=== PATIENT | male | born 1970 | race African-American/Black ===

== ENCOUNTER 2024-02-14 09:12 | Emergency (ER) | payer OTHER ==
[~2024-02-14] VITALS: Ht 167.6 cm; Wt 74.8 kg
[2024-02-14 09:42] VITALS: BP 177/113; PULSE 71; RESP 18; TEMP 98; O2SAT 99
== END 2024-02-14 10:51 | disposition home or self-care (01) ==
LOC: ER 09:12
DX: K40.90 Unilateral inguinal hernia, without obstruction or gangrene, not specified as recurrent (principal); F12.10 Cannabis abuse, uncomplicated
CPT/HCPCS: 74176

== ENCOUNTER → 2024-04-30 | Outpatient (CLI) | payer OTHER ==
[2024-04-30 14:21] LABS: Alanine Aminotransferase 36 U/L (7-40); Albumin 4.1 g/dL (3.2-4.8); Alkaline Phosphatase 95 U/L (46-116); Anion Gap 8 (5-15); Aspartate Aminotransferase 18 U/L (13-40); BUN/Creatinine Ratio 16.8 (10.0-20.0); Bilirubin, Total 0.8 mg/dL (0.2-1.0); Blood Urea Nitrogen 19 mg/dL (9-23); Calcium 9.8 mg/dL (8.7-10.4); Carbon Dioxide 26 mmol/L (20-31); Chloride 107 mmol/L (98-107); Glucose 142 mg/dL (74-106); Sodium 141 mmol/L (136-145); Total Protein 6.5 g/dL (5.7-8.2)
== END | disposition home or self-care (01) ==
LOC: LAB 13:09
DX: Z12.5 Encounter for screening for malignant neoplasm of prostate (principal); E87.6 Hypokalemia
CPT/HCPCS: 36415; 80053; 84153

== ENCOUNTER → 2024-06-09 | Outpatient (CLI) | payer OTHER ==
[2024-06-09 12:21] LABS: Urine Bacteria FEW /hpf (None Seen); Urine Blood Negative /uL (Negative); Urine Clarity Clear (Clear); Urine Color Yellow (Yellow); Urine Mucus FEW (None Seen); Urine Protein, UAD TRACE (Negative); Urine Specific Gravity 1.029 (1.001-1.035); Urine Sperm PRESENT /hpf (None Seen); Urine Urobilinogen 3 mg/dL (Negative); Urine WBC 1 /hpf (0 - 3)
[2024-06-09 12:40] LABS: Alanine Aminotransferase 35 U/L (7-40); Alkaline Phosphatase 107 U/L (46-116); Anion Gap 3 (5-15); Aspartate Aminotransferase 23 U/L (13-40); BUN/Creatinine Ratio 17.5 (10.0-20.0); Blood Urea Nitrogen 17 mg/dL (9-23); Calcium 9.9 mg/dL (8.7-10.4); Carbon Dioxide 28 mmol/L (20-31); Chloride 107 mmol/L (98-107); Glucose 98 mg/dL (74-106); Potassium 3.9 mmol/L (3.5-5.1); Sodium 138 mmol/L (136-145)
[2024-06-09 12:41] LABS: Albumin 4.4 g/dL (3.2-4.8); Bilirubin, Total 1.1 mg/dL (0.2-1.0); Total Protein 7.1 g/dL (5.7-8.2)
== END | disposition home or self-care (01) ==
LOC: LAB 11:28
DX: I10 Essential (primary) hypertension (principal); E87.6 Hypokalemia
CPT/HCPCS: 36415; 80053; 81001

== ENCOUNTER 2024-08-19 10:27 | Day surgery (SDC) | payer OTHER ==
[2024-08-17 11:07] LABS: Urine Bacteria None Seen /hpf (None Seen)
[2024-08-17 11:19] LABS: Basophils # (auto) 0.2 10 ^3/uL (0-0.2); Basophils % (auto) 4.8 % (0.0-2.0); Eosinophils # (auto) 0.5 10 ^3/uL (0-0.8); Eosinophils % (auto) 11.1 % (0.0-7.0); Hematocrit 43.7 % (41.0-53.0); Hemoglobin 14.6 g/dL (13.5-17.5); Lymphocytes # (auto) 1.5 10 ^3/uL (0.4-5.4); Mean Corpuscular Hemoglobin 31.1 pg (28.0-32.0); Mean Corpuscular Hgb Conc. 33.5 g/dL (32.0-36.0); Mean Corpuscular Volume 92.9 fL (80.0-100.0); Monocytes # (auto) 0.5 10 ^3/uL (0-1.3); Monocytes % (auto) 10.3 % (0.0-12.0); Neutrophils # (auto) 1.9 10 ^3/uL (1.6-8.6); Neutrophils % (auto) 41.8 % (37.0-80.0); Nucleated Red Blood Cells % 0.1 %; Platelet Count (auto) 229 10^3/uL (140-450); Red Blood Cells 4.71 10^6/uL (4.5-5.90); White Blood Cell 4.6 10^3/uL (4.4-10.8)
[2024-08-17 11:32] LABS: Urine Blood Negative /uL (Negative); Urine Clarity Clear (Clear); Urine Color Colorless (Yellow); Urine Protein, UAD Negative (Negative); Urine Squamous Epithelial Cell FEW /hpf (<5); Urine Urobilinogen Normal (Negative); Urine WBC <1 /hpf (0 - 3)
[2024-08-17 11:37] LABS: Partial Thromboplastin Time 26.5 SEC (24.5-34.5); Prothrombin Time 10.6 sec (9.3-11.8)
[2024-08-17 11:46] LABS: Albumin 4.8 g/dL (3.2-4.8); Alkaline Phosphatase 96 U/L (46-116); Anion Gap 6 (5-15); Aspartate Aminotransferase 24 U/L (13-40); BUN/Creatinine Ratio 12.5 (10.0-20.0); Bilirubin, Total 0.6 mg/dL (0.2-1.0); Blood Urea Nitrogen 14 mg/dL (9-23); Calcium 10.4 mg/dL (8.7-10.4); Carbon Dioxide 26 mmol/L (20-31); Chloride 107 mmol/L (98-107); Sodium 139 mmol/L (136-145); Total Protein 7.3 g/dL (5.7-8.2)
[2024-08-17 12:17] LABS: Alanine Aminotransferase 53 U/L (7-40); Glucose 112 mg/dL (74-106)
[~2024-08-19] VITALS: Ht 167.6 cm; Wt 72.6 kg
[~2024-08-19 10:27] MED LIST: AMLO-297 PO; ATOR20TA PO; EPIN0.12 IN; SPIR50TA5 PO
[2024-08-19] MEDS ORDERED: fentaNYL CITRATE 100 MCG/2 ML VL ONE (10:54)
[2024-08-19] MEDS ORDERED: SUCCINYLCHOLINE CHLORIDE 20 MG/ML 10ML VIAL IV ONE (10:57)
[2024-08-19] MEDS: ceFAZolin 2 GM/D5W100ml 100 ML IV ONE (11:26)
[2024-08-19] MEDS ORDERED: MEPERIDINE HCL (25 MG/ML) 1ML VIAL ONE (11:36)
[2024-08-19] MEDS ORDERED: PROPOFOL 10 MG/ML 20 ML IV ONE (11:36)
[2024-08-19] MEDS ORDERED: ROCURONIUM 10MG/ML 10ML VIAL IV ONE (11:38)
[2024-08-19] MEDS ORDERED: ePHEDrine SULFATE 50 MG/ML AMP ONE (11:41)
[2024-08-19] MEDS ORDERED: DexAMETHasone SOD PHOS 10MG/1ML VIAL INJ ONE (11:45)
[2024-08-19] MEDS ORDERED: ONDANSETRON HCL 4 MG/2 ML VIAL ONE (11:45)
[2024-08-19] MEDS: LIDOCAINE W/ EPINEPHRINE 1% 20ML VIAL ONE (12:00)
[2024-08-19] MEDS: BUPIVACAINE 0.5% P/F INJ 10 ML VIAL ONE (12:00)
[2024-08-19] MEDS ORDERED: SUGAMMADEX 200mg/2ml Vial (100MG/ML) IV ONE (12:15)
[2024-08-19] MEDS ORDERED: ACE3T PO (12:24)
[2024-08-19 12:29] VITALS: PULSE 88; RESP 17; TEMP 97.4; O2SAT 99
--- NOTE | 2024-08-19 12:34 | DVHOP ---
DATE OF SURGERY: 08/19/2024 PREOPERATIVE DIAGNOSIS: Right inguinal hernia. POSTOPERATIVE DIAGNOSIS: Right indirect inguinal hernia. SURGEON: Brad Abbasi MD. ANESTHESIA: General endotracheal. ANESTHESIOLOGIST: Dr. [place]. PROCEDURE: Repair of right inguinal hernia. IRON PILER: Benjamin Dominique. DESCRIPTION OF PROCEDURE: Under adequate anesthesia, with the patient's skin prepped and draped, incision was made over the visible palpable bulge in the right groin. The incision deepened with electrocautery. The patient's tissues divided down onto the Lazarus's fascia and then the external oblique aponeurosis. The cord structures were encircled with a [place] drain. Ilioinguinal nerve was reflected laterally and protected. The hernia sac was from the cremasteric fibers and traced high into the internal inguinal ring where it was doubly ligated and amputated. The excess peritoneum submitted for histopathologic examination. Subsequently, the floor of the hernia was repaired using nonabsorbable sutures through conjoined tendon and reflecting part of Poupart's fascia. The ilioinguinal nerve was returned into its normal anatomical position. The testicle was placed on tension into its scrotal compartment. Subcutaneous tissues and skin were approximated using Monocryl sutures, Dermabond glue and Steri-Strips. The patient remained stable throughout the procedure, left the operating room following an accurate needle and sponge count. MD SRINIVAS Zamora/JACQUES TID: [id number] RECEIPT: [id number]
[2024-08-19] MEDS ORDERED: ONDANSETRON HCL 4 MG/2 ML VIAL IV ONE (12:45)
[2024-08-19] MEDS ORDERED: ACETAMINOPHEN IV 1000 MG/100ML (10MG/ML) IV PRN (12:45)
[2024-08-19] MEDS ORDERED: hydrALAZINE HCL 20 MG/ML VL IV PRN (12:45)
[2024-08-19] MEDS ORDERED: MEPERIDINE HCL (25 MG/ML) 1ML VIAL IV PRN (12:45)
[2024-08-19 13:10] VITALS: BP 148/92; PULSE 76; RESP 16; O2SAT 8
[2024-08-19] MEDS: HYDROmorphone HCL 2 MG/ML VL/or syr IV PRN (13:15)
[2024-08-19] MEDS ORDERED: HYDROmorphone HCL 2 MG/ML VL/or syr ONE (13:24)
== END 2024-08-19 13:55 | disposition home or self-care (01) ==
LOC: SUR 10:27
PROVIDERS: ATTEND Surgery
DX: K40.90 Unilateral inguinal hernia, without obstruction or gangrene, not specified as recurrent (principal); I10 Essential (primary) hypertension; J45.909 Unspecified asthma, uncomplicated; E78.5 Hyperlipidemia, unspecified; Z79.899 Other long term (current) drug therapy; Z98.890 Other specified postprocedural states
CPT/HCPCS: 36415; 49505; 80053; 81001; 85025; 85610; 85730; 86850; 86900; 86901; 88304; C1781; J0330; J1100; J1171; J2175; J2405; J2704; J3010; J3490

== ENCOUNTER → 2024-09-30 | Outpatient (CLI) | payer OTHER ==
[~2024-09-30] MED LIST changes: +ACE3T PO
[2024-09-30 12:46] LABS: Urine Bacteria None Seen /hpf (None Seen)
[2024-09-30 13:00] LABS: Basophils # (auto) 0.1 10 ^3/uL (0-0.2); Basophils % (auto) 1.1 % (0.0-2.0); Eosinophils # (auto) 0.2 10 ^3/uL (0-0.8); Eosinophils % (auto) 4.5 % (0.0-7.0); Hematocrit 42.2 % (41.0-53.0); Hemoglobin 14.3 g/dL (13.5-17.5); Lymphocytes # (auto) 1.7 10 ^3/uL (0.4-5.4); Lymphocytes % (auto) 32.4 % (10.0-50.0); Mean Corpuscular Hemoglobin 30.8 pg (28.0-32.0); Mean Corpuscular Hgb Conc. 33.9 g/dL (32.0-36.0); Mean Corpuscular Volume 90.7 fL (80.0-100.0); Monocytes # (auto) 0.5 10 ^3/uL (0-1.3); Monocytes % (auto) 10.5 % (0.0-12.0); Neutrophils # (auto) 2.7 10 ^3/uL (1.6-8.6); Neutrophils % (auto) 51.5 % (37.0-80.0); Nucleated Red Blood Cells % 0.2 %; Platelet Count (auto) 246 10^3/uL (140-450); Red Blood Cells 4.65 10^6/uL (4.5-5.90); Red Cell Distribution Width 12.5 % (11.8-14.3); White Blood Cell 5.2 10^3/uL (4.4-10.8)
[2024-09-30 13:04] LABS: Urine Blood Negative /uL (Negative); Urine Clarity Clear (Clear); Urine Color Light-Yellow (Yellow); Urine Mucus FEW (None Seen); Urine Protein, UAD Negative (Negative); Urine Specific Gravity 1.014 (1.001-1.035); Urine Squamous Epithelial Cell None Seen /hpf (<5); Urine Urobilinogen Normal (Negative); Urine WBC < 1 /HPF (0-3)
[2024-09-30 13:38] LABS: Alanine Aminotransferase 31 U/L (7-40); Albumin 4.5 g/dL (3.2-4.8); Alkaline Phosphatase 97 U/L (46-116); Anion Gap 8 (5-15); Aspartate Aminotransferase 15 U/L (13-40); BUN/Creatinine Ratio 12.2 (10.0-20.0); Blood Urea Nitrogen 12 mg/dL (9-23); Calcium 9.9 mg/dL (8.7-10.4); Carbon Dioxide 24 mmol/L (20-31); Chloride 106 mmol/L (98-107); Glucose 96 mg/dL (74-106); Potassium 3.7 mmol/L (3.5-5.1); Sodium 138 mmol/L (136-145); Total Protein 6.9 g/dL (5.7-8.2)
[2024-09-30 13:39] LABS: Bilirubin, Total 0.8 mg/dL (0.2-1.0)
[2024-09-30 17:11] LABS: Triglycerides 47 mg/dL (< 150)
[2024-09-30 17:12] LABS: Cholesterol 120 mg/dL (< 200); LDL Cholesterol 54 mg/dL (< 100)
[2024-09-30 17:13] LABS: HDL Cholesterol 54 mg/dL (40-59)
== END | disposition home or self-care (01) ==
LOC: LAB 12:34
PROVIDERS: ATTEND Nurse Practitioner Family
DX: Z12.11 Encounter for screening for malignant neoplasm of colon (principal); I10 Essential (primary) hypertension; E55.9 Vitamin D deficiency, unspecified; E78.5 Hyperlipidemia, unspecified
CPT/HCPCS: 36415; 80053; 80061; 81001; 82274; 82306; 83036; 84443; 85025

== ENCOUNTER 2025-02-22 10:04 | Outpatient (CLI) | payer OTHER ==
[2025-02-22 11:26] LABS: Urine Protein, UAD Negative (Negative)
[2025-02-22 11:29] LABS: Hematocrit 39.7 % (41.0-53.0); Hemoglobin 13.8 g/dL (13.5-17.5); Mean Corpuscular Hemoglobin 30.7 pg (28.0-32.0); Mean Corpuscular Volume 88.6 fL (80.0-100.0); Nucleated Red Blood Cells % 0.1 %
[2025-02-22 11:42] LABS: Alanine Aminotransferase 33 U/L (7-40); Alkaline Phosphatase 91 U/L (46-116); Anion Gap 9 (5-15); Calcium 10.0 mg/dL (8.7-10.4); Carbon Dioxide 28 mmol/L (20-31); Chloride 103 mmol/L (98-107); Glucose 101 mg/dL (74-106); Potassium 4.0 mmol/L (3.5-5.1); Sodium 140 mmol/L (136-145)
[2025-02-22 11:43] LABS: Albumin 4.5 g/dL (3.2-4.8); BUN/Creatinine Ratio 13.9 (10.0-20.0); Blood Urea Nitrogen 14 mg/dL (9-23); Total Protein 6.7 g/dL (5.7-8.2); Triglycerides 40 mg/dL (< 150)
[2025-02-22 11:44] LABS: Cholesterol 112 mg/dL (< 200); HDL Cholesterol 52 mg/dL (40-59)
[2025-02-22 11:45] LABS: Bilirubin, Total 0.7 mg/dL (0.2-1.0)
[2025-02-22 13:34] LABS: Prostate Specific Antigen 0.62 ng/mL (0.0-4.0)
== END 2025-02-22 17:00 | disposition home or self-care (01) ==
LOC: LAB 10:04
PROVIDERS: ATTEND Nurse Practitioner Family
DX: I10 Essential (primary) hypertension (principal); E78.5 Hyperlipidemia, unspecified; E55.9 Vitamin D deficiency, unspecified; Z12.5 Encounter for screening for malignant neoplasm of prostate
CPT/HCPCS: 36415; 80053; 80061; 81001; 82306; 82607; 83036; 84153; 84443; 85025

== ENCOUNTER 2025-06-11 09:37 | Outpatient (CLI) | payer OTHER ==
[2025-06-11 10:29] LABS: Hematocrit 40.5 % (41.0-53.0); Hemoglobin 13.6 g/dL (13.5-17.5); Mean Corpuscular Hemoglobin 30.4 pg (28.0-32.0); Mean Corpuscular Volume 90.6 fL (80.0-100.0); Nucleated Red Blood Cells % 0.0 %
[2025-06-11 11:07] LABS: Urine Protein, UAD Negative (Negative)
[2025-06-11 11:17] LABS: Iron 36.0 ug/dL (65-175)
[2025-06-11 11:19] LABS: Total Iron Binding Capacity 295.0 ug/dL (250-425)
[2025-06-11 11:20] LABS: Alanine Aminotransferase 26 U/L (7-40); Albumin 4.2 g/dL (3.2-4.8); Alkaline Phosphatase 94 U/L (46-116); Anion Gap 7 (5-15); BUN/Creatinine Ratio 14.7 (10.0-20.0); Blood Urea Nitrogen 15 mg/dL (9-23); Calcium 9.1 mg/dL (8.7-10.4); Carbon Dioxide 27 mmol/L (20-31); Chloride 105 mmol/L (98-107); Cholesterol 128 mg/dL (< 200); Glucose 90 mg/dL (74-106); Potassium 4.1 mmol/L (3.5-5.1); Sodium 139 mmol/L (136-145); Total Protein 6.9 g/dL (5.7-8.2); Triglycerides 35 mg/dL (< 150)
[2025-06-11 11:21] LABS: Bilirubin, Total 0.9 mg/dL (0.2-1.0); HDL Cholesterol 59 mg/dL (40-59)
== END 2025-06-14 17:00 | disposition home or self-care (01) ==
LOC: LAB 09:37
PROVIDERS: ATTEND Nurse Practitioner Family
DX: I10 Essential (primary) hypertension (principal); E78.5 Hyperlipidemia, unspecified; E55.9 Vitamin D deficiency, unspecified; D64.9 Anemia, unspecified; Z79.899 Other long term (current) drug therapy
CPT/HCPCS: 36415; 80053; 80061; 81001; 82306; 82607; 83036; 83540; 83550; 84443; 85025